=== PATIENT | male | born 2005 | race Caucasian/White ===

== ENCOUNTER 2025-09-29 06:32 | Day surgery (SDC) | payer OTHER ==
[~2025-09-29] VITALS: Ht 193 cm; Wt 113.8 kg
[2025-09-29] MEDS ORDERED: Midazolam HCl 1MG / ML 2ML Vial ONE (07:27)
[2025-09-29] MEDS ORDERED: FentaNYL Citrate 50 MCG/ML 2 ML Injection ONE (07:27)
[2025-09-29] MEDS ORDERED: Bupivacaine 0.5% HCl 5 MG/ML 30MLVIAL ONE (07:29)
[2025-09-29] MEDS ORDERED: CeFAZolin Sodium 2,000 MG VIAL ONE (07:42)
[2025-09-29] MEDS ORDERED: Rocuronium Bromide 10 MG/ML 5ML Injection IV ONE (08:02)
[2025-09-29] MEDS ORDERED: Tranexamic Acid 100 ML IV ONE (08:17)
[2025-09-29] MEDS ORDERED: Ondansetron HCl 2 MG / ML 2ML Vial ONE (08:36)
[2025-09-29] MEDS ORDERED: Dexamethasone Sod Phos 10 MG/ML 1ML VIAL ONE (08:36)
--- NOTE | 2025-09-29 08:39 | NUR ---
[facility] 0839 [facility] PROCEDURE 0829: START OF BLOCK PROCEDURE BY DR DE LA TORRE INTERSCALENE BLOCK TO RIGHT SHOULDER. PT ON ROOM AIR, OXYGEN VIA NC AVAILABLE NEEDED. PT ON 3 LEAD RHYTHM STRIP MONITOR, PULSE OX, AND BP MONITORING. 0831: END OF BLOCK PROCEDURE BY DR DE LA TORRE. PT TOLERATED WELL.
--- NOTE | 2025-09-29 09:16 | NUR ---
09/29/25 0916 Marita Mcconnell 1GM TXA GIVEN AT 0850 BY ANESTHESIA.
[2025-09-29 11:03] VITALS: BP 115/62
== END 2025-09-29 10:50 | disposition home or self-care (01) ==
LOC: ORSCSDS 06:32
PROVIDERS: Orthopaedic Surgery Sports Medicine
PROC: 0RQJ4ZZ Repair Right Shoulder Joint, Percutaneous Endoscopic Approach (ICD-10-PCS; principal; 2025-09-29 08:00)
DX: S43.431A Superior glenoid labrum lesion of right shoulder, initial encounter (principal)
CPT/HCPCS: C1713; J0166; J0690; J1100; J2250; J2405; J2704; J3010; J7120